=== PATIENT | female | born 1965 | race Caucasian/White ===

== ENCOUNTER 2021-02-22 07:37 | Emergency (ER) | payer BC ==
--- NOTE | 2021-02-22 08:19 | EDM.PDOC ---
ED HPI GENERAL MEDICAL PROBLEM - General Chief Complaint: ENT Problem Stated Complaint: INFECTED TOOTH Time Seen by Provider: 02/22/21 08:03 Source of Information: Reports: Patient - History of Present Illness INITIAL COMMENTS - FREE TEXT/NARRATIVE: Essence is a 55 y/o female who comes to the ER with complaints of dental pain and also increased swelling to the right cheek region. No fever. She did contact [facility] and they placed her on Augmentin on Tuesday and also Tramadol. She did get itchy and from the Tramadol adn has just been using the ibuprofen and acetaminophen with good results. This AM her right cheek was so much more swollen and she was concerned and came to the ER. She does not have a dental appt until Mar 13. Right Lower Tooth/Teeth Pain Score (Numeric/FACES): 3 - Related Data Allergies Allergy/AdvReac Type Severity Reaction Status Date / Time adhesive tape Allergy Other Verified 02/22/21 08:04 coconut Allergy Anaphylactic Verified 02/22/21 08:04 Shock influenza virus vaccine ts Allergy Anaphylactic Verified 02/22/21 08:04 [id number] (36 mos,up) Shock [From Fluarix] ketorolac [From Toradol] Allergy Rash Verified 02/22/21 08:04 latex Allergy Itching Verified 02/22/21 08:04 mold Allergy Wheezing Verified 02/22/21 08:04 strawberry Allergy Anaphylactic Verified 02/22/21 08:04 Shock Home Meds: Home Meds Amoxicillin/Clavulanate K [Augmentin 875-125 MG] 1 tab PO BID 02/22/21 [History] Butalbit/Acetamin/Caff/Codeine [Fioricet-Cod 64-517-20-30 Cap] 1 each PO Q4H PRN #30 capsule 02/22/21 [Rx] Gabapentin [Neurontin] 300 mg PO BID 02/22/21 [History] Ibuprofen 600 mg PO Q4H PRN 02/22/21 [History] SUMAtriptan [Imitrex] 50 mg PO ASDIRECTED PRN 02/22/21 [History] tiZANidine HCl [Zanaflex] 4 mg PO Q8H PRN 02/22/21 [History] Past Medical History Musculoskeletal History: Reports: Back Pain, Chronic, Fibromyalgia Neurological History: Reports: Migraines Social & Family History - Tobacco Use Tobacco Use Status *Q: Current Every Day Tobacco User Years of Tobacco use: 30 Packs/Tins Daily: 0.5 Review of Systems - Review of Systems Review Of Systems: See Below Constitutional: Reports: No Symptoms Eyes: Reports: No Symptoms Ears: Reports: No Symptoms Nose: Reports: No Symptoms Mouth/Throat: Reports: Pain, Other (Right facial swelling) Respiratory: Reports: No Symptoms Cardiovascular: Reports: No Symptoms GI/Abdominal: Reports: No Symptoms Genitourinary: Reports: No Symptoms Musculoskeletal: Reports: No Symptoms Skin: Reports: No Symptoms Neurological: Reports: No Symptoms Psychiatric: Reports: No Symptoms ED EXAM, GENERAL - Physical Exam Exam: See Below General Appearance: Alert, WD/WN, No Apparent Distress Ears: Normal External Exam, Normal Canal, Hearing Grossly Normal, Normal TMs Nose: Normal Inspection, Normal Mucosa Throat/Mouth: Normal Lips, Normal Voice, Other (Note old dental work in the right upper molar region, right cheek swollen and slightly tender, no obvious drainage noted.) Head: Atraumatic, Normocephalic Neck: Normal Inspection, Supple Respiratory/Chest: No Respiratory Distress GI/Abdominal: Soft (Female) Exam: Deferred Rectal (Female) Exam: Deferred Extremities: Normal Inspection Neurological: Alert, Oriented Skin Exam: Warm, Dry, Intact, Normal Color Lymphatic: No Adenopathy Course - Vital Signs Text/Narrative:: 0803 The patient was seen by the [facility]. No labs or diagnostic imaging done. Reassured pt that Augmentin is an appropriate medication for a dental infection and to continue supportive cares with prn pain meds until she can see the dentist. She declined a dental block with offered. Patient concerned about absce ss spreading, she was offered a CT but will allow the abx to work a bit longer prior to any diagnostic imaging. She was give written instructions and left the ER in stable condition. Last Recorded V/S: Last Vital Signs Temp 35.9 C L 02/22/21 07:45 Pulse 78 02/22/21 07:45 Resp 16 02/22/21 07:45 BP 113/74 02/22/21 07:45 Pulse Ox 98 02/22/21 07:45 Departure - Departure Time of Disposition: 08:14 Disposition: Home, Self-Care 01 Condition: Good Clinical Impression: Pain, dental, Dental abscess - Discharge Information Prescriptions: Butalbit/Acetamin/Caff/Codeine [Fioricet-Cod 33-940-98-30 Cap] 1 each PO Q4H PRN #30 capsule PRN Reason: Pain Instructions: Dental Pain, Dental Abscess, [id number] Additional Instructions: -Continue the Augmentin Rx as prescribed -Fiorcet with Codeine 1 tablet every 4 hours as needed for pain #30(Rx) -Continue ice/heat as needed -Call back the dentist and advise of your new symptoms and see if they can get you in earlier. Sepsis Event Note (ED) - Focused Exam Vital Signs: Vital Signs Temp Pulse Resp BP Pulse Ox 02/22/21 07:45 35.9 C L 78 16 113/74 98
== END 2021-02-22 08:25 | disposition home or self-care (01) ==
LOC: VM.ED 07:37
DX: K04.7 Periapical abscess without sinus (principal); Z91.018 Allergy to other foods; Z91.040 Latex allergy status; Z88.7 Allergy status to serum and vaccine; Z91.048 Other nonmedicinal substance allergy status; Z88.6 Allergy status to analgesic agent; Z72.0 Tobacco use
CPT/HCPCS: 99282; 99283

== ENCOUNTER 2021-04-23 09:50 | Emergency (ER) | payer BC ==
--- NOTE | 2021-04-23 10:51 | EDM.PDOC ---
ED HPI GENERAL MEDICAL PROBLEM - General Chief Complaint: Trauma Stated Complaint: FALL Time Seen by Provider: 04/23/21 10:35 Source of Information: Reports: Patient History Limitations: Reports: No Limitations - History of Present Illness INITIAL COMMENTS - FREE TEXT/NARRATIVE: Essence is a 56 year old female who presents to ER with complaints of headache, neck pain, left shoulder and rib pain as well as left wrist pain after a fall. Was getting up to let out the dogs today and slipped and fell, landing on her left side. Denies loss of consciousness but relates after going to work, was having issues with confusion. Couldn't remember things she was supposed to be doing. States unable to turn her head to the left due to discomfort. Has history of " removed rib" and is having trouble to left axilla and posterior back when she takes a breath. Left hand feels numb, noted a small bruise. Pain with range of motion of her wrist. Did take tylenol without relief of pain. GCS 15. Did drive here and ambulate in to ER. Onset: Today Duration: Hour(s):, Getting Worse Location: Reports: Head, Neck, Chest, Upper Extremity, Left Quality: Reports: Ache Severity: Moderate Improves with: Reports: None Worsens with: Reports: Movement Context: Reports: Trauma Associated Symptoms: Reports: Confusion. Denies: Chest Pain, Cough, Fever/Chills, Loss of Appetite, Nausea/Vomiting, Shortness of Breath, Weakness Treatments [employer] ASSOCIATE: Reports: Acetaminophen - Related Data Allergies Allergy/AdvReac Type Severity Reaction Status Date / Time adhesive tape Allergy Other Verified 02/22/21 08:04 coconut Allergy Anaphylactic Verified 02/22/21 08:04 Shock influenza virus vaccine ts Allergy Anaphylactic Verified 02/22/21 08:04 [id number] (36 mos,up) Shock [From Fluarix] ketorolac [From Toradol] Allergy Rash Verified 02/22/21 08:04 latex Allergy Itching Verified 02/22/21 08:04 mold Allergy Wheezing Verified 02/22/21 08:04 strawberry Allergy Anaphylactic Verified 02/22/21 08:04 Shock Home Meds: Home Meds Amoxicillin/Clavulanate K [Augmentin 875-125 MG] 1 tab PO BID 02/22/21 [History] Butalbit/Acetamin/Caff/Codeine [Fioricet-Cod 84-429-18-30 Cap] 1 each PO Q4H PRN #30 capsule 02/22/21 [Rx] Gabapentin [Neurontin] 300 mg PO BID 02/22/21 [History] Ibuprofen 600 mg PO Q4H PRN 02/22/21 [History] SUMAtriptan [Imitrex] 50 mg PO ASDIRECTED PRN 02/22/21 [History] tiZANidine HCl [Zanaflex] 4 mg PO Q8H PRN 02/22/21 [History] Past Medical History Musculoskeletal History: Reports: Back Pain, Chronic, Fibromyalgia Neurological History: Reports: Migraines Social & Family History - Tobacco Use Tobacco Use Status *Q: Current Every Day Tobacco User Review of Systems - Review of Systems Review Of Systems: See Below Constitutional: Reports: No Symptoms Eyes: Denies: Blurred Vision, Decreased Acuity, Photophobia, Vision Change Ears: Denies: Dizziness, Bloody Discharge Nose: Denies: Epistaxis, Bloody Discharge Mouth/Throat: Reports: No Symptoms Respiratory: Reports: Pleuritic Chest Pain. Denies: Shortness of Breath, Cough Cardiovascular: Denies: Chest Pain, Edema, Syncope GI/Abdominal: Reports: Nausea. Denies: Abdominal Pain, Vomiting Genitourinary: Reports: No Symptoms Musculoskeletal: Reports: Neck Pain, Shoulder Pain, Arm Pain, Back Pain, Hand Pain Skin: Reports: Bruising Neurological: Reports: No Symptoms ED EXAM, GENERAL - Physical Exam Exam: See Below Exam Limited By: No Limitations General Appearance: Alert, WD/WN, No Apparent Distress Ears: Normal External Exam, Normal TMs Nose: Normal Inspection, Normal Mucosa, No Blood Throat/Mouth: Normal Inspection, Normal Oropharynx Head: Normocephalic Neck: Normal Inspection, Supple, Limited Range of Motion, Other (tender to left lateral and vertebral region of all of cervical spine.) Respiratory/Chest: No Respiratory Distress, Lungs Clear, Normal Breath Sounds Cardiovascular: Regular Rate, Rhythm GI/Abdominal: Normal Bowel Sounds, Soft, Non-Tender Back Exam: Normal Inspection, Other (tender to scapular region) Extremities: Normal Inspection, Limited Range of Motion (pain with range of motion of left shoulder and left wrist. Has small swelling to mid hand. No obvious deformities. ) Neurological: Alert, Oriented (GCS 15), CN II-XII Intact, Normal Cognition, Normal Gait, Normal Reflexes, No Motor/Sensory Deficits Skin Exam: Warm, Dry Course - Re-Assessments/Exams Free Text/Narrative Re-Assessment/Exam: 04/23/21 11:[address] spine CT are negative. Chest/rib xray are negative. Wrist xray negative Advised to use ice or heat. Tylenol for discomfort as unable to take NSAIDs or tramadol. Departure - Departure Time of Disposition: 11:48 Disposition: Home, Self-Care 01 Condition: Good Clinical Impression: Contusion - Discharge Information *PRESCRIPTION DRUG MONITORING PROGRAM REVIEWED*: No *COPY OF PRESCRIPTION DRUG MONITORING REPORT IN PATIENT SHIVA: No Instructions: Contusion, [id number] Referrals: Jemima Dalton NP [Primary Care Provider] - Forms: ED Department Discharge Additional Instructions: 1. Rest 2. Ice or heat to sore areas/swelling 3. Tylenol or gabapentin as needed for discomfort 4. Follow up if any persisting concerns.
--- NOTE | 2021-04-23 11:40 | CT ---
[id number] CT/CT Cervical Spine WO IV EXAM: CT Cervical Spine WO IV INDICATION: FALL. COMPARISON: None. DISCUSSION: No fracture or compression deformity. Vertebral bodies remain in normal alignment. Straightening of the normal cervical lordosis with spondylosis. No prevertebral soft tissue edema. Lung apices are clear. IMPRESSION: No acute findings in the cervical spine. Ad Morales MD 04/23/21 1679 Thank you for allowing us to participate in the care of your patient.
--- NOTE | 2021-04-23 11:41 | CT ---
[id number] CT/CT Head WO IV EXAM: CT Head WO IV CLINICAL DATA: FALL. COMPARISON STUDY: None FINDINGS: No intracranial hemorrhage, extra-axial fluid collection, mass, or acute ischemia. Generalized parenchymal atrophy with scattered areas of nonspecific white matter disease, commonly seen as sequela of chronic microvascular ischemia. Soft tissues are unremarkable. Paranasal sinuses and mastoid air cells are clear. IMPRESSION: No acute intracranial findings. Umair Marcum DO 04/23/21 1140 Thank you for allowing us to participate in the care of your patient.
--- NOTE | 2021-04-23 11:41 | CR ---
[id number] RAD/RAD Wrist Left 3V Min Exam: RAD Wrist Left 3V Min Indication:FALL. Comparison: No prior imaging for comparison. Discussion/Impression: Bones in normal alignment. No fracture, AVN, or erosive changes. Joint spaces are well-preserved. Bone mineralization is normal. Ad Morales MD 04/23/21 1140 Thank you for allowing us to participate in the care of your patient.
--- NOTE | 2021-04-23 11:42 | CR ---
[id number] RAD/RAD Ribs Left W PA Chest EXAM: RAD Ribs Left W PA Chest INDICATION: FALL. COMPARISON: None. DISCUSSION: Cardiomediastinal silhouette is normal in size and contour. No infiltrate, effusion, pneumothorax, or edema. IMPRESSION: No acute cardiopulmonary abnormality. Umair Marcum DO 04/23/21 1141 Thank you for allowing us to participate in the care of your patient.
== END 2021-04-23 12:00 | disposition home or self-care (01) ==
LOC: VM.ED 09:50
DX: S00.83XA Contusion of other part of head, initial encounter (principal); S40.012A Contusion of left shoulder, initial encounter; S20.212A Contusion of left front wall of thorax, initial encounter; S10.93XA Contusion of unspecified part of neck, initial encounter; Z91.048 Other nonmedicinal substance allergy status; Z91.018 Allergy to other foods; Z91.040 Latex allergy status; Z88.6 Allergy status to analgesic agent; Z88.7 Allergy status to serum and vaccine; Z72.0 Tobacco use; W01.0XXA Fall on same level from slipping, tripping and stumbling without subsequent striking against object, initial encounter
CPT/HCPCS: 70450; 71101-LT; 72125; 73110-LT; 99283; 99284-25